=== PATIENT | female | born 1970 | race Caucasian/White ===

== ENCOUNTER → 2018-12-13 09:16 | Outpatient (CLI) | payer OTHER, SELFPAY ==
[2018-12-13 11:17] LABS: Alanine Aminotransferase 44 U/L (12-78); Albumin Level 3.5 gm/dL (3.4-5.0); Alkaline Phosphatase 168 U/L (46-116); Anion Gap 11.3 mEq/L (5-15); Aspartate Amino Transferase 28 U/L (15-37); Bilirubin,Total 0.5 mg/dL (0.2-1.0); Blood Urea Nitrogen 8 mg/dL (7-18); Calcium 8.9 mg/dL (8.5-10.1); Carbon Dioxide 30 mmol/L (21.0-32.0); Chloride 104 mmol/L (98-107); Chol/HDL Ratio 5.9 (1-3.5); Cholesterol 178 mg/dL (140-200); Creatinine,Serum 0.92 mg/dL (0.55-1.02); Estimated Glomerular Filt Rate 65 ml/min (>60); GFR (African American) 79 ML/MIN (>60); Globulin 3.6 gm/dl (1.3-3.2); Glucose 93 mg/dL (74-106); HDL Cholesterol 30 mg/dL (29-89); LDL Cholesterol 107 mg/dL (0-130); Potassium 4.3 mmoL/L (3.5-5.1); Sodium 141 mmol/L (136-145); Thyroid Stimulating Hormone 2.31 uIU/ml (0.358-3.740); Total Protein,Serum 7.1 gm/dL (6.4-8.2); Triglycerides 204 mg/dL (30-200); VLDL Cholesterol 41 mg/dL (0-40)
== END ==
PROVIDERS: Visit Provider Family Medicine
DX: E78.1 Pure hyperglyceridemia (principal)
CPT/HCPCS: 36415; 80053; 80061; 84443

== ENCOUNTER → 2020-01-12 11:06 | Outpatient (CLI) | payer BC, SELFPAY ==
[2020-01-13 14:11] LABS: Covid-19 Nasal PCR Sendout Lex NOT DETECTED
== END ==
PROVIDERS: PCP Family Medicine; Visit Provider Family Medicine
DX: Z03.818 Encounter for observation for suspected exposure to other biological agents ruled out (principal); Z11.59 Encounter for screening for other viral diseases
CPT/HCPCS: U0004

== ENCOUNTER 2020-08-01 12:43 | Emergency (ER) | payer BC, SELFPAY ==
--- NOTE | 2020-08-01 12:36 | ECG_ITS ---
APPROVED REPORT Exam: Resting ECG HR:88 bpm ECG Measurements Heart Rate 88 AXES LA 148 P 26 QRSd 72 QRS -25 QT 372 T 10 QTc 450 Conclusion Normal sinus rhythm Moderate voltage criteria for LVH, may be normal variant Possible Lateral infarct, age undetermined Abnormal ECG Electronically signed by : Nakul Navarro, 08/01/2020 17:41:13
[2020-08-01 12:43] VITALS: BP 146/84; PULSE 94; RESP 18; TEMP 36.8; O2SAT 97; BMI 37.8
--- NOTE | 2020-08-01 12:48 | XR_ITS ---
PROCEDURE: XR CHEST 2V CLINICAL HISTORY: SOA COMPARISON: CR CXR CHEST(2 VIEWS-NOT PORTABLE) from 08/28/[address] ANGIO CHEST from 08/01/2020 FINDINGS: There are low lung volumes. Unremarkable cardiovascular structures. The lungs are clear without infiltrates, suspicious nodules, or pleural effusions. No acute bony abnormalities. IMPRESSION: No acute findings. Dictated by: Efrain Skelton MD 08/01/2020 14:37 Efrain Skelton MD in [facility] 08/01/2020 14:37
[2020-08-01 12:52] VITALS: BP 135/80; PULSE 90; RESP 20; O2SAT 97
[2020-08-01 12:56] LABS: Basophils # 0.1 K/mm3 (0-0.2); Basophils % 1.2 % (0.1-2.0); Eosinophils # 0.1 K/mm3 (0.0-0.4); Eosinophils % 1.1 % (0.1-12.0); Hematocrit 44.4 % (37.0-47.0); Hemoglobin 14.4 g/dL (12.2-16.2); Lymphocytes % 23.5 % (10-50); Mean Corpuscular HGB Conc 32.5 g/dL (31.8-35.4); Mean Corpuscular Hemoglobin 28.3 pg (27.0-31.2); Mean Corpuscular Volume 87.1 fl (81-99); Mean Platelet Volume 8.4 fl (7.4-10.4); Monocytes # 0.4 K/mm3 (0.1-1.0); Monocytes % 4.4 % (1.7-9.3); Neutrophils % 69.8 % (37.0-80.0); Platelet Count 308 K/mm3 (142-424); Red Blood Count 5.09 M/mm3 (4.20-5.40); Red Cell Distribution Width 16.8 % (11.5-17.5); White Blood Count 8.6 K/mm3 (4.8-10.8)
--- NOTE | 2020-08-01 13:02 | HMH.EDGENADL ---
ED Disposition Clinical Impression: Dyspnea Qualifiers: Dyspnea type: dyspnea on exertion Qualified Code(s): R06.00 - Dyspnea, unspecified Disposition: Home, Self-Care Condition on Discharge: Good Additional Instructions: Prednisone as prescribed. Follow-up with your primary care provider, call for appointment. Additional instructions for SHORTNESS OF BREATH: See your physician as soon as possible for further evaluation. Return immediately if worsening shortness of breath or if vomiting, chest pain, fever, coughing of blood, or passing out. Prescriptions: predniSONE [Prednisone 20mg Tab] 20 mg PO BID #10 tab Transmission Status: Pending to [facility] #[id number] Referrals: PCP,No [Non-Staff] - - Critical Care Critical Care Time: No Attestation: On 08/01/20, the high probability of a clinically significant, sudden or life threatening deterioration of the following system(s) required my full and direct attention, intervention and personal management. The time I documented below is in addition to time spent performing reported procedures but includes the following listed in this critical care notation. Medical Decision Making - Joshua Inquiry Pt receiving controlled substance: No Vital Signs: 08/01/20 12:43 08/01/20 12:52 08/01/20 13:18 Temperature 98.2 F Temperature Source Oral Pulse Rate [Right] 94 H 90 93 H Respiratory Rate 18 20 18 Blood Pressure [Right Arm] 146/84 H 135/80 128/80 Blood Pressure Mean [Right Arm] 104 98 96 Blood Pressure Source [Right Arm] Automatic Cuff Blood Pressure Position [Right Arm] Sitting 02 Sat by Pulse Oximetry 97 97 95 Oxygen Delivery Method Room Air 08/01/20 13:30 08/01/20 14:00 Temperature Temperature Source Pulse Rate [Right] 91 H 89 Respiratory Rate 16 18 Blood Pressure [Right Arm] 125/86 136/86 Blood Pressure Mean [Right Arm] 99 102 Blood Pressure Source [Right Arm] Blood Pressure Position [Right Arm] 02 Sat by Pulse Oximetry 96 96 Oxygen Delivery Method - Lab Data Lab Results 08/01/20 12:44: WBC 8.6, RBC 5.09, Hgb 14.4, Hct 44.4, MCV 87.1, MCH 28.3, MCHC 32.5, RDW 16.8, Plt Count 308, MPV 8.4, Neut % (Auto) 69.8, Lymph % (Auto) 23.5, Cavalier % (Auto) 4.4, Eos % (Auto) 1.1, Baso % (Auto) 1.2, Neut # (Auto) 6.0, Lymph # (Auto) 2.0, Cavalier # (Auto) 0.4, Eos # (Auto) 0.1, Baso # (Auto) 0.1 08/01/20 12:44: Sodium 137, Potassium 4.7, Chloride 104, Carbon Dioxide 26, Anion Gap 11.7, BUN 10, Creatinine 0.90, Estimated Creat Clear 107, Estimated GFR 66, Est GFR ( Amer) 80, Glucose 132 H, Calcium 9.5, Total Bilirubin 0.6, AST 61 H, ALT 43, Alkaline Phosphatase 169 H, Troponin I < 0.01, Total Protein 8.1, Albumin 4.6, Globulin 3.5 H, Albumin/Globulin Ratio 1.3 08/01/20 12:44: SARS-CoV-2 IgG Ab (Rapid) Negative, SARS-CoV-2 IgM Ab (Rapid) Negative 08/01/20 12:44: D-Dimer 0.69 H 08/01/20 15:01: Troponin I < 0.01 Result diagrams: 08/01/20 12:44 08/01/20 12:44 Orders (Tests/Meds): ED MEDICATIONS Discontinued Medications Generic Name Dose Route Start Last Admin Trade Name Freq PRN Reason Stop Dose Admin Iopamidol 70 ml 08/01/20 14:18 08/01/20 14:19 Iopamidol-370 (76%);100ml Bottle IV 08/01/20 14:19 70 ml ONCE ONE Administration Sodium Chloride 10 ml 08/01/20 14:18 08/01/20 14:19 Sodium Chloride 0.9% 10ml Syr (Rad Only) IV 08/01/20 14:19 10 ml ONCE ONE Administration Sodium Chloride 50 ml 08/01/20 14:18 08/01/20 14:19 0.9 % Sodium Chloride 50 Ml Vial IV 08/01/20 14:19 50 ml ONCE ONE Administration ORDERS Category Date Time Status Troponin I Q3H Lab 08/01/20 19:00 Ordered - Radiology Data #1 Image(s): Chest Image Reviewed: Yes I have reviewed radiologist's interpretation PROCEDURE: XR CHEST 2V CLINICAL HISTORY: SOA COMPARISON: CR CXR CHEST(2 VIEWS-NOT PORTABLE) from 08/28/[address] ANGIO CHEST from 08/01/2020 FINDINGS: There are low lung vol
[2020-08-01 13:07] LABS: Chloride 104 mmol/L (98-107)
[2020-08-01 13:08] LABS: Potassium 4.7 mmoL/L (3.5-5.1); Sodium 137 mmol/L (136-145)
[2020-08-01 13:10] LABS: Alanine Aminotransferase 43 U/L (12-78); Aspartate Amino Transferase 61 U/L (14-36); Blood Urea Nitrogen 10 mg/dl (7-17); Creatinine Clearance Estimated 107 mL/min (50-200); Estimated Glomerular Filt Rate 66 ml/min (>60); GFR (African American) 80 ML/MIN (>60)
[2020-08-01 13:11] LABS: Albumin Level 4.6 g/dl (3.5-5.0); Albumin/Globulin Ratio 1.3 (1.1-1.8); Alkaline Phosphatase 169 U/L (38-126); Anion Gap 11.7 mEq/L (5-15); Bilirubin,Total 0.6 mg/dl (0.2-1.3); Calcium 9.5 mg/dl (8.4-10.2); Carbon Dioxide 26 mmol/L (22.0-30.0); Globulin 3.5 g/dL (1.3-3.2); Glucose 132 mg/dl (74-100); Total Protein,Serum 8.1 g/dl (6.3-8.2)
[2020-08-01 13:16] LABS: D-Dimer 0.69 ug/mL (0.0-0.5)
[2020-08-01 13:18] VITALS: BP 128/80; PULSE 93; RESP 18; O2SAT 95
[2020-08-01 13:26] LABS: Troponin I < 0.01 ng/ml (0.00-0.034)
[2020-08-01 13:30] VITALS: BP 125/86; PULSE 91; RESP 16; O2SAT 96
[2020-08-01 13:36] LABS: Coronavirus 19 IgG Antibody Negative (Negative); Coronavirus 19 IgM Antibody Negative (Negative)
--- NOTE | 2020-08-01 13:51 | CT_ITS ---
PROCEDURE: CT ANGIO CHEST CLINCIAL INDICATION: soa, elev d-dimer Shortness of air, dyspnea with exertion COMPARISON: No exams were available for comparison TECHNIQUE: IV Contrast: 70ML Isovue 370 Axial images obtained with sagittal and coronal reformats. All CT scans at the facility use one or more dose reduction, viz: automated exposure control, ma/kV adjustment per patient size (including targeted exams where dose is matched to indication, i.e. head), or iterative reconstruction technique. FINDINGS: HEART AND MEDIASTINAL STRUCTURES: No evidence of pulmonary embolus, aortic aneurysm, or aortic dissection. There is a small lymph node in the right anterior pre cardial region measuring 1.5 cm. LUNGS AND PLEURAL SPACES: There is calcified granuloma in the right lower lobe posteriorly. A 4 mm noncalcified nodules present in the right lower lobe superiorly. Parenchymal opacity is present in the right upper lobe medially and may be due to an area of scarring. BONY STRUCTURES: No acute bony abnormalities apparent. UPPER ABDOMEN: Diffuse fatty liver. Borderline splenomegaly degenerative changes thoracic spine ADDITIONAL FINDINGS: No other significant abnormalities. IMPRESSION: No acute finding. No evidence of pulmonary embolus. Nonacute findings as described above. Dictated by: Efrain Skelton MD 08/01/2020 14:36 Efrain Skelton MD in [facility] 08/01/2020 14:36
[2020-08-01 14:00] VITALS: BP 136/86; PULSE 89; RESP 18; O2SAT 96
[2020-08-01 15:31] LABS: Troponin I < 0.01 ng/ml (0.00-0.034)
[2020-08-01 15:56] VITALS: BP 162/92; PULSE 95; RESP 16; TEMP 36.6; O2SAT 97
== END 2020-08-01 15:57 | disposition home or self-care (01) ==
PROVIDERS: Emergency Provider Emergency Medicine; PCP Family Medicine
DX: R06.02 Shortness of breath (principal); F32.9 Major depressive disorder, single episode, unspecified; Z82.3 Family history of stroke; Z83.3 Family history of diabetes mellitus; Z82.49 Family history of ischemic heart disease and other diseases of the circulatory system
CPT/HCPCS: 71046; 71275; 80053; 84484; 85025; 85378; 86328; 93005; 99284; Q9967

== ENCOUNTER → 2021-03-19 10:50 | Outpatient (POV) | payer BC, SELFPAY ==
[2021-03-19 13:26] LABS: Erythrocyte Sedimentation Rate 26 mm/hr (0-30)
[2021-03-19 16:23] LABS: Uric Acid 4.8 mg/dl (2.5-6.2)
[2021-03-20 08:28] LABS: RA Latex Turbid. <10.0 IU/mL (0.0-13.9)
[2021-03-20 14:14] LABS: Sjogren's Anti-SS-A <0.2 AI (0.0-0.9); Sjogren's Anti-SS-B <0.2 AI (0.0-0.9)
[2021-03-20 17:16] LABS: Antinuclear Antibodies, IFA Positive (.)
[2021-03-23 16:37] LABS: Antinuclear Antibodies (ANA) NEGATIVE
== END ==
PROVIDERS: Visit Provider Otolaryngology
DX: M35.00 Sjogren syndrome, unspecified (principal)
CPT/HCPCS: 36415; 84550; 85651; 86038; 86235; 86431

== ENCOUNTER 2022-04-27 14:55 | Emergency (ER) | payer OTHER, SELFPAY ==
[2022-04-27] VITALS (7 sets, daily range): BP systolic 140–157; BP diastolic 71–98; PULSE 98–123; RESP 17–24; TEMP 36.7–36.9; O2SAT 92–99; BMI 32.0
--- NOTE | 2022-04-27 16:04 | EXP.UTC ---
Discharge Plan Prescriptions Prescriptions: No Action duloxetine [Cymbalta] 30 mg capsule,delayed release(DR/EC) 60 mg PO QDAY Referrals Follow up/Referrals: Rigo Oconnell MD [Primary Care Provider] - See instructions Clinical Impressions Clinical Impression: Abdominal pain [facility] [place] General Stated complaint: Vomitting, possible dehydration, BA Mode of Arrival: Ambulatory Source of Information: Patient Limitations: No Limitations Time Seen by Provider: 04/27/22 16:05 Description of Symptoms (Recalled from Triage Doc. by RN): PATIENT C/O EPIGASTRIC PAIN AND VOMITING THAT STARTED AROUND 1100 TODAY. HEENT Symptoms (Recalled from RN notes): No Resp Symptoms (Recalled from RN notes): No Skin Symptoms (Recalled from RN notes): No MS Symptoms (Recalled from RN notes): No Functional Status (Recalled from RN notes): WNL History of Present Illness Provider Complaint: 51 yr old female presents for epigastric pain, nausea and vomiting Related Data Home Medications Medication Instructions Recorded Confirmed duloxetine 30 mg capsule,delayed 60 mg PO QDAY Depression 07/23/17 04/27/22 release (Cymbalta) Allergies Allergy/AdvReac Type Severity Reaction Status Date / Time No Known Allergies Allergy Verified 08/01/20 12:54 Worker's Comp Is this a Worker's Comp case?: No [facility] 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 , 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) Smoking Status: Never smoker alcohol intake: current current occupational status: other Travel in the last 8 weeks: None ROS Obtained: Yes All systems reviewed & no additional complaints except as documented Constitutional Constitutional: Reports system reviewed and no additional complaints, except as documented Eyes Eyes: Reports system reviewed and no additional complaints, except as documented ENT Ears, Nose, Mouth, and Throat: Reports system reviewed and no additional complaints, except as documented Cardiovascular Cardiovascular: Reports system reviewed and no additional complaints, except as documented Respiratory Respiratory: Reports system reviewed and no additional complaints, except as documented Gastrointestinal Gastrointestingal: Reports system reviewed and no additional complaints, except as documented, as per HPI, abdominal pain, bloating, nausea and vomiting Musculoskeletal Musculoskeletal: Reports system reviewed and no additional complaints, except as documented Integumentary/Breasts Skin/Breast: Reports system reviewed and no additional complaints, except as documented and Reports as per HPI Neurologic Neurologic: Reports system reviewed and no additional complaints, except as documented Endocrine Endocrine: Reports system reviewed and no additional complaints, except as documented Hematologic/Lymphatic Henatologic/Lymphatic: Reports system reviewed and no additional complaints, except as documented Allergic/Immunologic Allergic/Immunologic: Reports system reviewed and no additional complaints, except as documented Physical Exam General General appearance: alert and in no apparent distress Head Head exam: atraumatic and normocephalic Eye Eye exam: Present normal appearance and PERRL ENT ENT exam: Present normal exam and normal oropharynx Neck Neck exam: Present normal inspection and full ROM Chest Chest inspection: Present normal inspection Respiratory Respiratory exam: Present normal lung sounds bilaterally Cardiovascular Cardiovascular exam: Present regular rate Abdominal Exam Abdominal exam: Present soft and tenderness Neurological Exam Neurological exam: Present alert Skin Skin exam: Present warm Lymphatic Lymphatic Findings: no adenopathy Medical Decision Making Medical Records Medical records reviewed: Yes I reviewed the patient's medical records. Joshua Inquiry Pt receiving controlled substance: No Vital Signs: 04/27/22 15:40 Temperature 98.4 F Temperature
--- NOTE | 2022-04-27 16:27 | HMH.EDGENADL ---
Discharge Plan Disposition Patient Disposition: Home, Self-Care Condition: Fair Prescriptions Prescriptions: New ondansetron 4 mg tablet,disintegrating 4 mg PO Q8H PRN (Reason: nausea and vomiting) Qty: 10 0RF No Action duloxetine [Cymbalta] 30 mg capsule,delayed release(DR/EC) 60 mg PO QDAY Referrals Follow up/Referrals: Rigo Oconnell MD [Primary Care Provider] - See instructions Activity Restrictions/Add. Instructions Additional Instructions/Restrictions: Phenergan take-home pack, then Zofran as needed for nausea and vomiting. Drink plenty of fluids. Drink at least a quart of Gatorade tonight. Tylenol as needed for pain or fever. Follow-up with primary care provider for further evaluation and care. Follow-up with primary care provider for HIDA scan to evaluate dilated gallbladder. Additional instructions for ABDOMINAL PAIN: See your physician as soon as possible for further evaluation. Return immediately if worsening abdominal pain, vomiting, shortness of breath, fever, vomiting of blood or abdominal distention. Additional instructions for VOMITING/DIARRHEA: See your physician as soon as possible for further evaluation. Drink plenty of fluids. Return immediately if severe abdominal pain, uncontrollable vomiting, shortness of breath, fever, bloody diarrhea, vomiting of blood or abdominal distention. Clinical Impressions Clinical Impression: Abdominal pain, Acute dehydration, Enteritis, Dilated gallbladder, Vomiting Instructions Patient Instructions: DI for Acute Abdominal Pain Discharge ED Provider: Kevin Otero General Adult HPI General Chief complaint: Abdominal Pain Stated complaint: Vomitting, possible dehydration, BA Time Seen by Provider: 04/27/22 16:30 Mode of Arrival: Ambulatory Source of Information: Patient Limitations: No Limitations Description of Symptoms (Recalled from ER Triage Doc. by RN): PATIENT C/O EPIGASTRIC PAIN AND VOMITING THAT STARTED AROUND 1100 TODAY. History of Present Illness HPI narrative: Patient states that she did not keep it down to about 4 AM. She was awakened by epigastric pain and made her feel like she needed to have a bowel movement at around 1030 or 11 AM. She had a bowel movement that was normal and it did not relieve the pain. She has had 2 or 3 episodes of vomiting and is still nauseated. No fever. No urinary symptoms. No chest pain or shortness of breath. Her mouth feels very dry and she is thirsty. She has had no prior abdominal surgeries. She is postmenopausal. 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) Smoking Status: Never smoker alcohol intake: current current occupational status: other Travel in the last 8 weeks: None ROS Obtained: Yes Systems reviewed as appropriate & no additional complaints except as documented Constitutional Constitutional: Denies fever(s), Denies headache(s) and Denies weakness ENT Ears, Nose, Mouth, and Throat: Reports dry mouth, Denies headache(s), Denies nasal discharge and Denies sore throat Cardiovascular Cardiovascular: Denies chest pain Respiratory Respiratory: Denies shortness of breath and Denies cough Gastrointestinal Gastrointestingal: Reports abdominal pain, nausea and vomiting; Denies constipation or diarrhea Genitourinary Female Genitourinary: Denies difficulty voiding, Denies dysuria and Denies flank pain Musculoskeletal Musculoskeletal: Denies numbness Neurologic Neurologic: Denie
--- NOTE | 2022-04-27 16:36 | ECG_ITS ---
APPROVED REPORT Exam: Resting ECG HR:111 bpm ECG Measurements Heart Rate 111 AXES IL 164 P 22 QRSd 73 QRS -23 QT 335 T 48 QTc 400 Conclusion SINUS TACHYCARDIA LOW QRS VOLTAGE IN PRECORDIAL LEADS [QRS DEFLECTION < 1.0 mV IN CHEST LEADS] MODERATE VOLTAGE CRITERIA FOR LVH, CONSIDER NORMAL VARIANT [MEETS CRITERIA IN ONE OF: R(aVL), S(V1), R(V5), R(V5/V6)+S(V1)] POSSIBLE ANTERIOR MYOCARDIAL INFARCTION , PROBABLY OLD [30 ms Q WAVE IN V3/V4, OR R < 0.2 mV IN V4] ABNORMAL RHYTHM ECG UNCONFIRMED REPORT Electronically signed by : Nakul Navarro MD 04/29/2022 21:14:08
--- NOTE | 2022-04-27 16:38 | CT_ITS ---
PROCEDURE INFORMATION: Exam: CT Abdomen And Pelvis Without Contrast Exam date and time: 04/27/2022 4:41 PM Age: 51 years old Clinical indication: Abdominal pain; Epigastric; TECHNIQUE: Imaging protocol: Computed tomography of the abdomen and pelvis without contrast. Radiation optimization: All CT scans at this facility use at least one of these dose optimization techniques: automated exposure control; mA and/or kV adjustment per patient size (includes targeted exams where dose is matched to clinical indication); or iterative reconstruction. COMPARISON: CT ANGIO CHEST 08/01/2020 2:12 PM FINDINGS: Lungs: Calcified right lower lobe pulmonary granuloma. No acute pulmonary findings, as visualized. No consolidation. Liver: Upper normal liver size. Fatty liver, with mild periportal sparing. No discrete mass seen on this nonenhanced exam. Gallbladder and bile ducts: Mildly distended gallbladder. No calcified stones. No pericholecystic edema fluid. Biliary tree is within normal limits. Pancreas: The pancreas is normal. Spleen: Slight splenomegaly 13.7 cm series 3, image 23. Adrenal glands: The adrenal glands are normal. Kidneys and ureters: The kidneys are normal. The ureters are normal. Stomach and bowel: The stomach is distended with fluid, no acute findings. Fluid distention of large and small bowel loops, but no dilated loops or mucosal thickening. The transverse colon is empty and contracted which likely accounts for thickened appearance, there is no pericolic edema. Appendix: No findings of appendicitis. Intraperitoneal space: Mildly increased density of the central mesentery. There is no significant free intraperitoneal fluid. There is no free intraperitoneal air. Vasculature: No aortic aneurysm, as visualized. Borderline dilated ascending thoracic aorta up to 4 cm series 3, image 1. Scattered calcified atherosclerotic plaques. No portal venous gas. Lymph nodes: No significantly enlarged lymph nodes by short axis criteria. Multiple small mesenteric nodes noted. Urinary bladder: The bladder is normal. Reproductive: Unremarkable, as visualized. Bones/joints: Chronic bilateral L5 spondylolysis with grade 1-2 anterolisthesis at L5-S1. Severe degenerative disc disease and spondylosis at this level. There is also moderate disc narrowing and spondylosis in the visualized lower thoracic spine. No acute fracture. Soft tissues: There is a tiny fatty umbilical hernia; no herniated bowel loops. IMPRESSION: 1. Distended gallbladder, but no calcified stones or biliary dilatation. 2. Fatty liver. Mild splenomegaly. 3. Mildly increased density of the central mesentery. Findings are nonspecific and may be chronic. Leading considerations include mesenteric panniculitis, edema related to systemic causes, and reactive edema secondary to subtle infectious or inflammatory bowel pathology. Lack of significant adenopathy would make lymphoma less likely. 4. The stomach, large and small bowel are distended with fluid; there is no evidence of intestinal perforation or obstruction. 5. Bilateral L5 spondylolysis with grade 1-2 anterolisthesis at L5-S1, and severe degenerative disc disease.
[2022-04-27 16:51] LABS: Basophils % 0.4 % (0.1-2.0); Chloride 102 mmol/L (98-107); Eosinophils # 0.1 K/mm3 (0.0-0.4); Eosinophils % 0.7 % (0.1-12.0); Hematocrit 43.2 % (37.0-47.0); Hemoglobin 14.4 g/dL (12.2-16.2); Lymphocytes # 0.2 K/mm3 (0.7-4.5); Lymphocytes % 2.3 % (10-50); Mean Corpuscular HGB Conc 33.2 g/dL (31.8-35.4); Mean Corpuscular Volume 87.1 fl (81-99); Mean Platelet Volume 8.1 fl (7.4-10.4); Monocytes # 0.2 K/mm3 (0.1-1.0); Monocytes % 2.1 % (1.7-9.3); Neutrophils # 8.6 K/mm3 (1.8-7.8); Neutrophils % 94.4 % (37.0-80.0); Platelet Count 227 K/mm3 (142-424); Potassium 3.7 mmoL/L (3.5-5.1); Red Blood Count 4.96 M/mm3 (4.20-5.40); Red Cell Distribution Width 14.9 % (11.5-17.5); Sodium 142 mmol/L (136-145); White Blood Count 9.1 K/mm3 (4.8-10.8)
[2022-04-27 16:53] LABS: Blood Urea Nitrogen 16 mg/dl (7-17); Creatinine Clearance Estimated 92 mL/min (50-200); Estimated Glomerular Filt Rate 66 ml/min (>60); GFR (African American) 80 ML/MIN (>60)
[2022-04-27 16:54] LABS: Alanine Aminotransferase 30 U/L (12-78); Albumin Level 4.3 g/dl (3.5-5.0); Albumin/Globulin Ratio 1.3 (1.1-1.8); Alkaline Phosphatase 190 U/L (38-126); Anion Gap 15.7 mEq/L (5-15); Aspartate Amino Transferase 30 U/L (14-36); Bilirubin,Total 0.9 mg/dl (0.2-1.3); Calcium 8.7 mg/dl (8.4-10.2); Carbon Dioxide 28 mmol/L (22.0-30.0); Globulin 3.3 g/dL (1.3-3.2); Glucose 169 mg/dl (74-100); Lipase 71 U/L (23-300); Total Protein,Serum 7.6 g/dl (6.3-8.2)
[2022-04-27 16:59] LABS: MANUAL DIFFERENTIAL MANUAL DIFFERENTIAL (MANUAL DIFF)
--- NOTE | 2022-04-27 17:00 | PC.NURSE ---
PT AMBULTAED TO [facility]
[2022-04-27 17:11] LABS: Microscopic, Urine URINE MICROSCOPIC (MICROSCOPIC)
[2022-04-27 17:22] LABS: Troponin I < 0.01 ng/ml (0.00-0.034)
[2022-04-27 17:27] LABS: Appearance,Urine SL CLOUDY (Clear); Bilirubin,Urine Negative (Negative); Blood, Urine Negative (Negative); Color,Urine YELLOW (Yellow); Glucose,Urine (UA) Negative (Negative); Ketones,Urine 1+ (Negative); Leukocyte Esterase,Urine Negative (Negative); Nitrate,Urine Negative (Negative); Protein,Urine Negative (Negative); Specific Gravity, Urine 1.025 (1.005-1.030); Urobilinogen,Urine 0.2 EU/dl (0.2)
[2022-04-27 17:38] LABS: Squamous Epithelial Cell,Urine Occasional #/hpf (0-5); WBC,Urine Occasional #/hpf (0-3)
--- NOTE | 2022-04-27 17:44 | US_ITS ---
PROCEDURE INFORMATION: Exam: US Abdomen, Limited; Right Upper Quadrant Exam date and time: 04/27/2022 6:10 PM Age: 51 years old Clinical indication: Other: Ruq pain; Additional info: Epigast pain, distended gb on CT TECHNIQUE: Imaging protocol: Real time ultrasound of the abdomen with image documentation. Limited exam focused on the right upper quadrant. COMPARISON: CT ABDOMEN PELVIS WO CON 04/27/2022 4:41 PM FINDINGS: Liver: Normal size. Increased echogenicity of liver parenchyma suggesting fatty change. No discrete mass. Gallbladder: Distended gallbladder. No gallstones. There is no gallbladder wall thickening. The technologist noted a positive sonographic Alex sign when scanning over the gallbladder. Biliary ducts: Normal as visualized, distal common duct is obscured by bowel gas. Visualized duct measured up to 5 mm diameter, within normal limits. No stones detected. No intrahepatic biliary dilatation. Pancreas: Visualized pancreas is unremarkable. Pancreas is partially obscured by bowel gas. No ductal dilatation, cyst or mass as visualized. Right kidney: Normal. No mass. No hydronephrosis. 11.4 x 4.4 x 6.6 cm diameter. Intraperitoneal space: No free fluid is seen in Jules's pouch. IMPRESSION: 1. Distended gallbladder and the patient reported pain when the technologist scanned over the gallbladder; however, no gallstones were detected. No biliary dilatation, or sonographic findings of acute cholecystitis. 2. Fatty liver. 3. Otherwise unremarkable exam, slightly limited by bowel gas.
[2022-04-27 17:48] LABS: Lymphocytes % 2 % (10-50); Monocytes % 4 % (2-9); Neutrophils % 94 % (42-76); Platelet Estimate Normal; RBC Morphology Normal; Total Cells Counted 100
--- NOTE | 2022-04-27 17:55 | PC.NURSE ---
ER has spoken with radiology staff, states a staff member for ultrasound will be here at 6:00pm today. Order placed for gallbladder ultrasound per ER
--- NOTE | 2022-04-27 18:31 | PC.NURSE ---
PT IS IN [facility]
--- NOTE | 2022-04-27 18:38 | PC.NURSE ---
PT BACK FROM [facility]
[2022-04-27 18:59] LABS: Coronavirus 19, PCR Not Detected (NotDetected); Influenza A, PCR Not Detected (NotDetected); Influenza B, PCR Not Detected (NotDetected)
--- NOTE | 2022-04-27 19:31 | PC.NURSE ---
Pt requests more medication for nausea. RN notified.
== END 2022-04-27 20:30 | disposition home or self-care (01) ==
LOC: UTC 14:58 → ER 16:13
PROVIDERS: Nurse Practitioner Family; Emergency Provider Emergency Medicine; PCP Family Medicine
DX: K52.9 Noninfective gastroenteritis and colitis, unspecified (principal); K82.8 Other specified diseases of gallbladder; E86.0 Dehydration; Z79.899 Other long term (current) drug therapy; F32.A Depression, unspecified
CPT/HCPCS: 74176; 76705; 80053; 81001; 83690; 84484; 85007; 85025; 87804; 93005; 96365; 96375; 96376; 99284; C9803; J2405; U0003; U0005

== ENCOUNTER → 2022-05-15 09:50 | Outpatient (CLI) | payer OTHER, SELFPAY ==
--- NOTE | 2022-05-15 09:59 | NM_ITS ---
FINAL REPORT CLINICAL HISTORY: ABD PAIN,GALLBLADDER DISEASE 10:05am 8.75 MCI TC CHOLETEC 1.6 MCG CCK NO PAIN WITH CCK FINDINGS: HEPATOBILIARY SCAN WITH CCK INJECTION Following intravenous administration of approximately 8.75 of technetium Choletec, multiple scintigraphic images were obtained. The hepatic parenchymal phase shows homogeneous distribution of the tracer throughout the liver. Prompt appearance of tracer is noted in the intrahepatic and extrahepatic biliary systems. The gallbladder visualizes normal. Biliary to bowel transit is within normal limits. Following intravenous 1.6 mcg CCK injection, gallbladder ejection fraction is estimated to be 65 %. IMPRESSION: Normal gallbladder ejection fraction of 65 %. Reviewed, Interpreted and Dictated by John Amador MD Transcribed by Brayden Vega Authenticated and [facility]
== END ==
PROVIDERS: PCP Family Medicine; Visit Provider Family Medicine
DX: R10.13 Epigastric pain (principal); K82.8 Other specified diseases of gallbladder
CPT/HCPCS: 78227; A9537; J2805

== ENCOUNTER 2023-07-07 08:45 | Outpatient (CLI) | payer OTHER, SELFPAY ==
--- NOTE | 2023-07-07 08:51 | MM_ITS ---
PROCEDURE INFORMATION: Exam: MG Bilateral Screening 3D Mammography Exam date and time: 07/07/2023 9:00 AM Age: 52 years old Clinical indication: Screening examination . Family history of breast carcinoma. TECHNIQUE: Imaging protocol: Bilateral Screening tomosynthesis and 2D mammography including computer-aided detection (CAD) when performed. COMPARISON: 1. MG DMSB DIG MAMM-SCREEN MILES 05/03/2015 5:02 PM 2. MG DMSB DIG MAMM-SCREEN MILES 04/25/2014 11:01 AM 3. MG DMSB DIG MAMM-SCREEN MILES 04/08/2013 8:25 AM FINDINGS: MAMMOGRAPHY: Breast composition: There are scattered areas of fibroglandular density. Mass: No suspicious masses. Architectural distortion: No suspicious distortion. Calcifications: No suspicious calcifications. Asymmetric density: None. Skin thickening: None. Axillary adenopathy: None. IMPRESSION: No mammographic evidence of malignancy. Annual screening is recommended unless otherwise clinically indicated. ASSESSMENT: BI-RADS Category 1: Negative
== END 2023-07-07 23:59 ==
LOC: RAD 08:45
PROVIDERS: PCP Family Medicine; Visit Provider Obstetrics & Gynecology Gynecology
DX: Z12.31 Encounter for screening mammogram for malignant neoplasm of breast (principal)
CPT/HCPCS: 77063; 77067

== ENCOUNTER 2025-05-18 14:17 | Outpatient (CLI) | payer OTHER, SELFPAY ==
--- OUTSIDE RECORDS SUMMARY | 2024-04-04 05:15 | XMS_ITS ---
Author Organization [facility] Address [address] [facility] [address] [facility] [address] [place] [id number] Care Team Providers Care Coil Connector Repairer Name Role Phone Candida Reyes Primary Care Provider [phone] ColumbiaJean ClaudeRigo Unavailable [phone] Allergies No Known Allergies Results Component Value Reference Range Notes P-Comprehensive Metabolic [place] (CMP) Reviewed date:04/05/2024 08:52:02 AM Interpretation:gluc 104, alk phos 139 Performing Lab: Notes/Report: Test performed by [facility] [address] [place] [address] , [address], [place] [address] Tejas Garcia MD, Nurse Clinical CLIA: [id number] Sodium 142 135-145 mmol/L Potassium 4.7 3.5-5.3 mmol/L Chloride 105 97-108 mmol/L CO2 27 22-32 mmol/L Glucose 104 65-99 mg/dL BUN 11 6-20 mg/dL Creatinine 0.74 0.50-1.00 mg/dL Calcium 9.2 8.6-10.4 mg/dL eGFR by Creatinine 96 >59 mL/min/1.73m2 Protein 6.8 6.0-8.3 g/dL Albumin 4.4 3.5-5.3 g/dL Alkaline Phosphatase 139 35-121 IU/L ALT (SGPT) 19 <5-47 IU/L AST (SGOT) 18 <5-40 IU/L Bilirubin, Total 0.3 <0.2-1.2 mg/dL A/G Ratio 1.8 1.1-2.5 P-Lipid Panel Reviewed date:04/05/2024 08:52:02 AM Interpretation:non-hdl 151, ldl 132 Performing Lab: Notes/Report: Test performed by [facility] [address] [facility] , [address], [place] [address] Tejas Garcia MD, Nurse Clinical CLIA: [id number] Cholesterol 198 <200 mg/dL Triglycerides 93 <150 mg/dL HDL Cholesterol 47 >39 mg/dL Cholesterol / HDL Ratio 4.21 0.00-4.44 Ratio Non-HDL Cholesterol 151 <130 mg/dL LDL Cholesterol (Calculation) 132 <130 mg/dL LDL Cholesterol Levels* Less than 100 mg/dL Optimal 100 to 129 mg/dL Near Optimal/ Above Optimal 130 to 159 mg/dL Borderline High 160 to 189 mg/dL High 190 mg/dL and above Very High * Categories as recommended by the 2004 ATPIII guidelines LDL/HDL Ratio 2.8 <3.3 Ratio LDL Cholesterol Patient History Test Date: 05/16/2022 LDL Results: 104 Units: mg/dL % Change: - Test Date: 04/04/2024 LDL Results: 132 Units: mg/dL % Change: +26% P-TSH reflex to FT4 Reviewed date:04/05/2024 08:52:02 AM Interpretation:Normal Performing Lab: Notes/Report: Test performed by [facility] , [address], [place] [address] Tejas Garcia MD, Nurse Clinical CLIA: [id number] TSH reflex to FT4 1.78 0.43-5.25 mU/L REASON FOR VISIT Yearly Physical Medications Medication SIG (Take, Route, Frequency, Duration) Notes Start Date End Date Status DULoxetine HCl 60 MG 2 cap(s) orally onc e a day; Duration: 90 days Active CareTouch CPAP & BIPAP Hose - as directed 11/19/2015 Active Albuterol Sulfate HFA 108 (90 Base) MCG/ACT 2 puff(s) inhaled every 6 hours Active Progesterone 200 MG 1 capsule at bedtime Orally Once a day; Duration: 30 day(s) Active Maddie 0.1 MG/24HR 1 patch to skin Transdermal Two times a Week; Duration: 30 day(s) Active Vital Signs Blood pressure systolic 128 mm Hg 04/04/20 24 Blood pressure diastolic 80 mm Hg 024 Heart Rate 79 /min 04/04/2024 Height 62 in 04/04/2024 Weight 162.8 lbs 04/04/2024 BMI 29.77 kg/m2 04/04/2024 Encounters Encounter Location Date Provider Diagnosis [facility] [address] [facility] [address] [place] [id number] 04/04/2024 Rigo Oconnell Well adult exam Z00. 00 Assessments Encounter Date Diagnosis (ICD Code) Assessment Notes Treatment Notes Treatment Clinical Notes Section Notes 04/04/2024 Well adult exam (ICD-10 - Z00.00) Plan Of Treatment Next Appt Details Follow Up: prn, Reason: Progress Notes * BERNARD ROSENB:1970 ( 54 yo F)Acc No.[id number]:04/04/2024 Physical Patient: SAE BLACKMONA Provider: Mariah Oconnell M.D. :1970 A ge:53 Y S ex:Female Date:04/04/2024 Address:[address] [place] [address] DEAN Reinoso [id number] Pcp:Candida Reyes Subjective: * Chief Complaints: * 1 . Yearly Physical. * HPI: H PI: Patient is here today for a nnual physical for her insurance. Pt is fasting today. Pt sts that she has no new concerns or complaints. * ROS: D ERMATOLOGY: no R cony. n o H patrick. G ASTROENTEROLOGY: no N ausea. n o V omiting. U ROLOGY: no D ifficulty urinating. n o B lood in urine. * Medical History: A llergic Rhinitis, Asthma, [employer] - Dr. Whitaker, Depression, Sleep Apnea. * Surgical History: c olonoscopy 2022, Right Foot Surgery 04/2023. * Hospitalization/Major Diagno stic Procedure: R T Heel [place]- [facility], SOA- [facility] ER 07/2020. * Family History: F ather: , cancer. M other: . P aternal Grand Father: . P aternal Grand Mother: . M aternal Grand Father: . M aternal Grand Mother: . 1 son(s) , 1 daughter(s) - healthy. . * 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: C URRENT TOBACCO USE S moking Status: Patient does NOT smoke, Second hand smoke exposure: Yes. C affeine: yes, frequency:coffe coke tea. Exercise: no. Home smoke detector use: yes. Marital Status: . Occupation: no. Past smoking status: no. Recreational drug use: no. Alcohol: no. Travel ouside [place]: yes. * Medications: T aking Progesterone 200 MG Capsule 1 capsule at bedtime Orally Once a day , Taking Maddie 0.1 MG/24HR Patch Twice Weekly 1 patch to skin Transdermal Two times a Week , Taking CareTouch CPAP & BIPAP Hose - Miscellaneous as directed , Taking Albuterol Sulfate HFA 108 (90 Base) MCG/ACT Aerosol Solution 2 puff(s) inhaled every 6 hours , Taking DULoxetine HCl 60 MG Capsule Delayed Release Particles 2 cap(s) orally once a day , Medication List reviewed and reconciled with the patient * Allergies: N .K.D.A. Objective: * Vitals: W t:162.8, Temp:98.5, BP:128/80, HR:79, Nurse:ANGELSE, Ht: 62, BMI:29.77. * Examination: G eneral Examination: General Appearance: N AD. H EENT: u nremarkable.?Chest: n ormal shape and expansion. H eart: R SR. L ungs: c lear to auscultation. S kin: n ormal, no rash. P eripheral pulses: n ormal (2+) bilaterally. E xtremities: n o leg edema. Assessment: * Assessment: 1. W [facility] adult exam - Z00.00 (Primary) Plan: * Treatment: Value Reference Range A /G Ratio 1.8 1.1-2.5 - * A lbumin 4.4 3.5-5.3 - g/dL * A lkaline Phosphatase 139 H 35-121 - IU/L * A LT (SGPT) 19 <5-47 - IU/L * A ST (SGOT) 18 <5-40 - IU/L * B ilirubin, Total 0.3 <0.2-1.2 - mg/dL * B UN 11 6-20 - mg/dL * C alcium 9.2 8.6-10.4 - mg/dL * C hloride 105 97-108 - mmol/L * C O2 27 22-32 - mmol/L * C reatinine 0.74 0.50-1.00 - mg/dL * G lucose 104 H 65-99 - mg/dL * P otassium 4.7 3.5-5.3 - mmol/L * S odium 142 135-145 - mmol/L * P rotein 6.8 6.0-8.3 - g/dL * e GFR by Creatinine 96 >59 - mL/min/1.73m2 * Radha Mallory 04/05/2024 8:51: 56 AM >See phone encounter ?LAB: P-Lipid Panel (Collection Date & Time - 04/04/2024 10:31 AM)?non-hdl 151, ldl 132* Value Reference Range C holesterol / HDL Ratio 4.21 0.00-4.44 - Ratio * C holesterol 198 <200 - mg/dL * H DL Cholesterol 47 >39 - mg/dL * L DL Cholesterol (Calculation) 132 H <130 - mg/d L * L DL/HDL Ratio 2.8 <3.3 - Ratio * N on-HDL Cholesterol 151 H <130 - mg/dL * T riglycerides 93 <150 - mg/dL * Radha Mallory 04/05/2024 8:51: 56 AM >See phone encounter ?LAB: P-TSH reflex to FT4 (Collection Date & Time - 04/04/2024 10:31 AM)? Normal* Value Reference Range T SH reflex to FT4 1.78 0.43-5.25 - mU/L * Radha Mallory 04/05/2024 8:51: 56 AM >See phone encounter * Follow Up: p rn * Images: Billing Information: * Visit Code: 33846 Preventive Care Est Pt Age 40-64. * Procedure Codes: * Electronic signature of Arlet Oconnell MD on 05/18/2025 at 04:42 PM EST Sign off status: Pending * Provider: Mariah Oconnell M.D. Date: Generated for Enrique isaacs/Sofie/Trixie on: 07/18/2024 04:42 PM EST History and Physical Notes * HPI (History of Present Illness) Category Sub-Category Detail Notes Category Not es HPI Patient is here today for annual physical for her insurance. Pt is fasting today. Pt sts that she has no new concerns or complaints Examination Category Sub-Category Detail Notes Category Not es General Examination HEENT: unremarkable Heart: RSR Lungs: clear to auscultatio n Extremities: no leg edema General Appearance: NAD Skin: normal, no rash Peripheral pulses: normal (2+) bilatera lly Chest: normal shape and exp ansion
--- OUTSIDE RECORDS SUMMARY | 2025-04-10 10:15 | XMS_ITS ---
Author Organization [facility] Address [address] [facility] 36 [facility] [address] [place] [id number] Care Team Providers Care Business Transformation Manager Name Role Phone Candida Reyes Primary Care Provider Rigo Oconnell Unavailable [phone] Allergies No Known Allergies Results Component Value Reference Range Notes P-Comprehensive Metabolic [place] (CMP) Reviewed date:04/12/2025 03:33:44 PM Interpretation:Alk Phos 140 Performing Lab: Notes/Report: Test performed by [facility] , [address], [place] [address] Tejas Garcia MD, Jewelry Sales Associate CLIA: [id number] Sodium 142 135-145 mmol/L Potassium 4.6 3.5-5.3 mmol/L Chloride 105 97-108 mmol/L CO2 29 20-32 mmol/L Glucose 90 65-99 mg/dL BUN 13 6-20 mg/dL Creatinine 0.81 0.50-1.00 mg/dL Calcium 9.1 8.6-10.4 mg/dL eGFR by Creatinine 85 >59 mL/min/1.73m2 Protein 6.9 6.0-8.3 g/dL Albumin 4.2 3.5-5.3 g/dL Alkaline Phosphatase 140 35-121 IU/L ALT (SGPT) 15 <5-47 IU/L AST (SGOT) 15 <5-40 IU/L Bilirubin, Total 0.4 <0.2-1.2 mg/dL A/G Ratio 1.6 1.1-2.5 P-Lipid Panel Reviewed date:04/12/2025 03:33:44 PM Interpretation:TC 211, HDL 41, TC/HDL 5.15, Non-HDL 170, LDL 142, LDL/HDL 3.47 Performing Lab: Notes/Report: Test performed by [facility] [address] [place] [address] [address] , [place] [address] Tejas Garcia MD, Jewelry Sales Associate CLIA: [id number] Lipid Panel Footnote See Below *Based on optimal reference values. Please refer to the DOS for additional information regarding diagnostic lipid reference ranges, patient management based on the recently updated lipid guidelines ([employer] [employer] [employer] Task Force on Clinical Practice Guidelines (2018), and pediatric diagnostic lipid reference values (<18 years old). Total Cholesterol 211 <200 mg/dL Triglycerides 138 <150 mg/dL HDL Cholesterol 41 >50 mg/dL Total Cholesterol / HDL Ratio* 5.15 <3.99 Rati o Non-HDL Cholesterol 170 <130 mg/dL LDL Cholesterol (Calculation) 142 <100 mg/dL LDL / HDL Ratio* 3.47 <1.99 Ratio LDL Cholesterol Patient History Test Date: 05/16/2022 LDL Results: 104 Units: mg/dL % Change: - Test Date: 04/04/2024 LDL Results: 132 Units: mg/dL % Change: +26% Test Date: 04/10/2025 LDL Results: 142 Units: mg/dL % Change: +7% P-TSH reflex to FT4 Reviewed date:04/12/2025 03:33:44 PM Interpretation:Normal Performing Lab: Notes/Report: Test performed by [facility] [address] [place] [address] , [address], [place] [address] Tejas Garcia MD, Jewelry Sales Associate CLIA: [id number] TSH reflex to FT4 1.27 0.43-5.25 mU/L REASON FOR VISIT yearly cpx Medications Medication SIG (Take, Route, Frequency, Duration) Notes Start Date End Date Status Progesterone 200 MG 1 capsule at bedtime Orally Once a day; Duration: 30 day(s) Active Maddie 0.1 MG/24HR 1 patch to skin Transdermal Two times a Week; Duration: 30 day(s) Active CareTouch CPAP & BIPAP Hose - as directed 11/19/2015 Active Albuterol Sulfate HFA 108 (90 Base) MCG/ACT 2 puff(s) inhaled every 6 hours Active DULoxetine HCl 60 MG 2 cap(s) orally onc e a day; Duration: 90 days Active Vital Signs Blood pressure systolic 132 mm Hg 04/10/20 25 Blood pressure diastolic 80 mm Hg 025 Heart Rate 83 /min 04/10/2025 Height 62 in 04/10/2025 Weight 168.8 lbs 04/10/2025 BMI 30.87 kg/m2 04/10/2025 Encounters Encounter Location Date Provider Diagnosis [facility] [address] [place] [id number] 04/10/2025 Rigo Oconnell Well adult exam Z00. 00 Assessments Encounter Date Diagnosis (ICD Code) Assessment Notes Treatment Notes Treatment Clinical Notes Section Notes 04/10/2025 Well adult exam (ICD-10 - Z00.00) Plan Of Treatment Next Appt Details Follow Up: 1 Year, Reason: Progress Notes * BERNARD ROSENB:1970 ( 54 yo F)Acc No.[id number]:04/10/2025 Physical Patient: RUSTY BLACKMON Provider: Mariah Oconnell M.D. :1970 A ge:54 Y S ex:Female Date:04/10/2025 Address:[address] [place] [id number] Pcp:Candida Reyes Subjective: * Chief Complaints: * 1 . Yearly cpx. * HPI: H PI: 54 year old female presents with c/o Patient is here today for?Pt here for annual physical. Pt states she is doing well and does not have any concerns at this time. C ardiology: c/o Hyperlipidemia P t is fasting today. * Medical History: A llergic Rhinitis, Asthma, [employer]ING - Dr. Whitaker, Depression, Sleep Apnea. * Surgical History: c olonoscopy 2022, Right Foot Surgery 04/2023. * Hospitalization/Major Diagno stic Procedure: R T Heel Pain- [facility] [place] 07/28/2016, SO[facility]- [facility] ER 07/2020. * Family History: F ather: , cancer. M other: . P aternal Grand Father: . P aternal Grand Mother: . M aternal Grand Father: . M aternal Grand Mother: . 1 son(s) , 1 daughter(s) - healthy. . * 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: C URRENT TOBACCO USE: No S moking Status: Patient does NOT smoke, [...] Allergies: N .K.D.A. Objective: * Vitals: W t: 168.8, Temp: 98.0, BP: 132/80, HR: 83, Nurse: roxanne, Ht: 62, BMI:30.87. * Examination: G eneral Examination: General Appearance: N AD. H EENT: u nremarkable.?Chest: n ormal shape and expansion. H eart: R SR. L ungs: c lear to auscultation. S kin: n ormal, no rash. P eripheral pulses: n ormal (2+) bilaterally. E xtremities: n o leg edema. Assessment: * Assessment: 1. W [facility] adult exam - Z00.00 (Primary) Plan: * Treatment: Value Reference Range A /G Ratio 1.6 1.1-2.5 - * A lbumin 4.2 3.5-5.3 - g/dL * A lkaline Phosphatase 140 H 35-121 - IU/L * A LT (SGPT) 15 <5-47 - IU/L * A ST (SGOT) 15 <5-40 - IU/L * B ilirubin, Total 0.4 <0.2-1.2 - mg/dL * B UN 13 6-20 - mg/dL * C alcium 9.1 8.6-10.4 - mg/dL * C hloride 105 97-108 - mmol/L * C O2 29 20-32 - mmol/L * C reatinine 0.81 0.50-1.00 - mg/dL * G lucose 90 65-99 - mg/dL * P otassium 4.6 3.5-5.3 - mmol/L * S odium 142 135-145 - mmol/L * P rotein 6.9 6.0-8.3 - g/dL * e GFR by Creatinine 85 >59 - mL/min/1.73m2 * Jessica Macario 04/12/2025 03 :33:38 PM EDT > See phone encounter ?LAB: P-Lipid Panel (Collection Date & Time - 04/10/2025 03:27 PM)?TC 211, HDL 41, TC/HDL 5.15, Non-HDL 170, LDL 142, LDL/HDL 3.47* Value Reference Range C holesterol / HDL Ratio 5.15 H <3.99 - Ratio * C holesterol 211 H <200 - mg/dL * H DL Cholesterol 41 L >50 - mg/dL * L DL Cholesterol (Calculation) 142 H <100 - mg/d L * L DL/HDL Ratio 3.47 H <1.99 - Ratio * N on-HDL Cholesterol 170 H <130 - mg/dL * T riglycerides 138 <150 - mg/dL * L ipid Panel Footnote See Below - * Jessica Macario 04/12/2025 03 :33:38 PM EDT > See phone encounter ?LAB: P-TSH reflex to FT4 (Collection Date & Time - 04/10/2025 03:27 PM)? Normal* Value Reference Range T SH reflex to FT4 1.27 0.43-5.25 - mU/L * Jessica Macario 04/12/2025 03 :33:38 PM EDT > See phone encounter * Procedure Codes: 1 036F TOBACCO NON-USER, 3075F SYST BP GE 130 - 139MM HG, 3079F DIAST BP 80-89 MM HG * Follow Up: 1 Year * Images: Billing Information: * Visit Code: 07136 Preventive Care Est Pt Age 40-64. * Procedure Codes: 1036F TOBACCO NON-USER. 3075F SYST BP GE 130 - 139MM HG. 3079F DIAST BP 80-89 MM HG. * Electronic signature of Arlet Oconnell MD on 05/18/2025 at 04:42 PM EST Sign off status: Pending * Provider: Mariah Oconnell M.D. Date: Generated for Printi ng/Faxing/eTransmitting on: 07/18/2024 04:42 PM EST History and Physical Notes * HPI (History of Present Illness) Category Sub-Category Detail Notes Category Not es Cardiology Hyperlipidemia Pt is fasting today HPI Patient is here today for Pt her e for annual physical. Pt states she is doing well and does not have any concerns at this time Examination Category Sub-Category Detail Notes Category Not es General Examination HEENT: unremarkable Heart: RSR Lungs: clear to auscultatio n Extremities: no leg edema General Appearance: NAD Skin: normal, no rash Peripheral pulses: normal (2+) bilatera lly Chest: normal shape and exp ansion
--- NOTE | 2025-05-18 14:19 | MM_ITS ---
PROCEDURE INFORMATION: Exam: MG Bilateral Screening 3D Mammography Exam date and time: 05/18/2025 2:19 PM Age: 54 years old Clinical indication: Screening examination. A maternal aunt had breast cancer. TECHNIQUE: Imaging protocol: Bilateral Screening tomosynthesis and 2D mammography including computer-aided detection (CAD) when performed. COMPARISON: 1. MG MM DIG SCREENING MAMM BI W/CAD 07/07/2023 9:00 AM 2. MG DMSB DIG MAMM-SCREEN MILES 05/03/2015 5:02 PM 3. MG DMSB DIG MAMM-SCREEN MILES 04/25/2014 11:01 AM 4. MG DMSB DIG MAMM-SCREEN MILES 04/08/2013 8:25 AM FINDINGS: MAMMOGRAPHY: Breast composition: There are scattered areas of fibroglandular density. Mass: No suspicious mass. Architectural distortion: None. Calcifications: No suspicious calcifications. Asymmetric density: None. Skin thickening: None. Axillary adenopathy: None. IMPRESSION: No mammographic evidence of malignancy. Annual screening is recommended unless otherwise clinically indicated. ASSESSMENT: BI-RADS Category 1: Negative.
--- OUTSIDE RECORDS SUMMARY | 2025-05-18 16:42 | XMS_ITS | Clinical Summary ---
Author Organization [facility] Address [address] [place] [address] Care Team Providers Care Field Service Technician Name Role Phone Rigo Oconnell MD Primary Care Provider + [phone] Allergies No known active allergies Medications DULoxetine (CYMBALTA) 60 MG capsule Take 120 mg by mouth Daily. 10/18/2021 Active albuterol (ProAir RespiClick) 108 (90 Base) MCG/ACT inhaler Inhale 2 puffs Every 4 (Four) Hours. Active Active Problems No known active problems Family History Medical History Relation Name Comments Hypertension Father Stomach cancer Father Diabetes Mother Heart disease Mother Hypertension Mother Relation Name Status Comments Father Mother 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 Tobacco Use Types Packs/Day Years Used Date Smoking Tobacco: Never Smokeless Tobacco: Never Alcohol Use Standard Drinks/Week Comments Yes 0 (1 standard drink = 0.6 oz pur e alcohol) 1-3 drinks oer week Abuse Screen Answer Date Recorded Unsafe at Home or Work/School Not on file Feels Threatened by Someone? Not on file Does Anyone Keep You from Co ntacting Others or Doint Things Outside the Home? Not on file 04/10/2023 Physical Sign of Abuse Present Not on file 1 Housing Stability Answer Date Recorded Current Living Arrangements Not on file 03/29 Potentially Unsafe Housing Conditions Not on april e 04/10/2023 Family and Community Support Answer Franky e Recorded Help with Day-to-Day Activities Not on file 04/10/2023 Lonely or Isolated Not on file 04/10/2023 Employment Answer Date Recorded Do you want help finding or keeping work or a calvin b? Not on file 04/10/2023 Disabilities Answer Date Recorded Concentrating, Remembering, or Making Decisions Difficulty Not on file 04/10/2023 Doing Errands Independently Difficulty Not on fi le 04/10/2023 Education Answer Date Recorded Help with school or training? Not on file Preferred Language Not on file 04/10/2023 Comments Unknown Sex and Gender Information Value Date Recorded Sex Assigned at Not on file Legal Sex Female 10:55 AM EDT Gender Identity Not on file Sexual Orientation Not on file Last Filed Vital Signs Vital Sign Reading Time Taken Comments Blood Pressure - - Pulse - - Temperature 36.7 C (98 F) 10/23/2021 11:06 AM EDT Respiratory Rate - - Oxygen Saturation - - Inhaled Oxygen Concentration - - Weight 81.8 kg (180 lb 4.8 oz) 10/23/2021 11:06 AM EDT Height 157.5 cm (5' 2 ) 10/23/2021 11:06 AM EDT Body Mass Index 32.98 10/23/2021 11:06 AM EDT Plan of Treatment Health Maintenance Due Date Last Done Comments Annual Gynecologic Pelvic and Breast Exam 1970 TDAP/TD VACCINES (2 - Tdap) 09/01/2006 09/01/1996 MAMMOGRAM 2009 COLOGUARD 2014 COLON CANCER SCREENING 5 YEAR SIGMOIDOSCOPY 2014 COLONOSCOPY [address] CANCER SCREENING [address] CT COLONOGRAPHY 2014 FECAL OCCULT BLOOD TEST 2014 FIT Testing (1 year) 2014 Pneumococcal Vaccine 50+ (1 of 1 - PCV) 09/04/2019 ZOSTER VACCINE (1 of 2) 09/04/2019 ANNUAL PHYSICAL 10/23/2021 HEPATITIS C SCREENING 10/23/2021 INFLUENZA VACCINE 01/27/2025 Insurance Care Teams Field Service Technician Relationship Specialty Start Date End Date Rigo Oconnell MD [address] [facility] [address] [facility] [address] [place] [id number] PCP - General Family Medicine 09/27/21
--- OUTSIDE RECORDS SUMMARY | 2025-05-18 16:42 | XMS_ITS | Referral Summary ---
Author Organization [employer] ([place], [place], [place], [place], [place]) Address [address] [place] [address] Care Team Providers Care Machine Tool Dresser Name Role Phone Rigo Oconnell MD Primary Care Provider + [phone] Allergies No known active allergies Medications progesterone (PROMETRIUM) 200 MG capsule Take 1 capsule (200 mg total) by mouth daily. 02/11/2023 Active estradioL (VIVELLE-DOT) 0.1 mg/24 hr patch 1 patch twice a week. 04/20/2023 Active albuterol sulfate (ProAir RespiClick) 90 mcg/actuation AePB Inhale 2 puffs by mouth via inhaler. Active DULoxetine (CYMBALTA) 60 MG capsule Take 1 capsule (60 mg total) by mouth 2 (two) times daily. Active Active Problems Problem Noted Date Diagnosed Date Obesity 05/05/2023 MIREILLE on CPAP 05/05/2023 Asthma 05/05/2023 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 Tobacco Use Types Packs/Day Years Used Date Smoking Tobacco: Never Smokeless Tobacco: Never Tobacco Cessation:Counseling Given: Not Answered Alcohol Use Standard Drinks/Week Comments Not Currently 0 (1 standard drink = 0.6 oz pur e alcohol) rarely Food Insecurity Answer Date Recorded Food run out past 12 months Not on file 06/30 Food did not last past 12 months Not on file 07/18/2023 Employment Answer Date Recorded Help finding and keeping a job Not on file 0 07/18/2023 Family and Community Support Answer Franky e Recorded Help with Day to Day Activities Not on file 07/18/2023 Feeling Lonely or Isolated Not on file 07/18 Educational Attainment Answer Date Angelo rded Speak language other than French at home Not on file 07/18/2023 Want help with school or training Not on file 07/18/2023 Substance Use Answer Date Recorded Used prescription meds for non-medical reasons N ot on file 07/18/2023 Used illegal drugs past 12 months Not on file 07/18/2023 Comments Unknown Sex and Gender Information Value Date Recorded Sex Assigned at Not on file Legal Sex Female 8:28 AM CDT Gender Identity Not on file Sexual Orientation Not on file Last Filed Vital Signs Vital Sign Reading Time Taken Comments Blood Pressure 145/92 05/05/2023 3:20 PM EST Pulse 83 05/05/2023 3:20 PM EST Temperature 36.2 C (97.2 F) 05/05/2023 2:55 PM EST Respiratory Rate 16 05/05/2023 3:20 PM EST Oxygen Saturation 97% 05/05/2023 3:20 PM EST Inhaled Oxygen Concentration - - Weight 85.3 kg (188 lb) 05/05/2023 10:17 AM EST Height 157.5 cm (5' 2 ) 05/05/2023 10:17 AM EST Body Mass Index 34.39 05/05/2023 10:17 AM EST Plan of Treatment Not on file Insurance [facility] [employer] Care Teams Machine Tool Dresser Relationship Specialty Start Date End Date Rigo Oconnell MD [address] [place] [id number] PCP - General Family Medicine 04/21/23
--- OUTSIDE RECORDS SUMMARY | 2025-05-18 16:42 | XMS_ITS | Clinical Summary ---
Author Organization [place] [address] Care Team Providers Care Sports Apparel Internship Name Role Phone Unavailable Primary Care Provider Unavailabl e 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 Tobacco Use Types Packs/Day Years Used Date Smoking Tobacco: Never Assessed Comments Unknown Sex and Gender Information Value Date Recorded Sex Assigned at Not on file Legal Sex Female 5:50 AM EDT Gender Identity Not on file Sexual Orientation Not on file Plan of Treatment Health Maintenance Due Date Last Done Comments Annual Wellness Exam 1972 DTaP/TDaP/Td (1 - Tdap) 1988 Hepatitis B Vaccine (1 of 3 - 19+ 3-dose series) 1988 Cologuard 2014 Colon Cancer Screening 2014 Colonoscopy 2014 FIT 2014 Sigmoidoscopy 2014 Virtual Colonography 2014 Pneumococcal Vaccine 50+ (1 of 1 - PCV) 09/04/2019 Zoster (1 of 2) 09/04/2019 COVID-19 Vaccine (1 - 2024-2 6 season) 2025 Influenza Vaccine (#1) 2025 Meningococcal B Vaccine Aged Out No l onger eligible based on patient's age to complete this topic
--- OUTSIDE RECORDS SUMMARY | 2025-05-18 16:42 | XMS_ITS | Patient Health Record ---
[facility] [address] [facility] [address] [facility] [address] [place] [id number] Care Team Providers Care Garment Sewer Hand Name Role Phone Candida Reyes Primary Care Provider OakfieldRigo cisneros Unavailable [phone] Allergies No Known Allergies Results Component Value Reference Range Notes P-Comprehensive Metabolic [place] (CMP) Reviewed date:04/12/2025 03:33:44 PM Interpretation:Alk Phos 140 Performing Lab: Notes/Report: Test performed by [facility] [address] [place] [address] , [address], [place] [address] Tejas Garcia MD, Homogenizer Operator CLIA: [id number] Sodium 142 135-145 mmol/L Potassium 4.6 3.5-5.3 [...] 3.47 Performing Lab: Notes/Report: Test performed by [facility], [address] , [place] [address] Tejas Garcia MD, Homogenizer Operator MARY: [id number] Lipid Panel Footnote See Below *Based on optimal reference values. Please refer to the DOS for additional information regarding diagnostic lipid reference ranges, patient management based on the recently updated lipid guidelines ([place] [employer]/[place] [employer] Task Force on Clinical Practice [...] Interpretation:Normal Performing Lab: Notes/Report: Test performed by [facility] [address] [place] [address] , [address], [place] [address] Tejas Garcia MD, Homogenizer Operator CLIA: [id number] TSH reflex to FT4 1.27 0.43-5.25 mU/L Reason For Referral No Information Medications Medication SIG (Take, Route, Frequency, Duration) [...] e a day; Duration: 90 days Active Immunizations Vaccine Route Administration Date Status Comme nts COVID 19 Pfizer Unknown 02/17/2021 Administered DT, 7 YEARS OR OLDER Unknown 09/01/1996 Administered xFluzone (6mos and older)-trivalent ID Intradermal 04/06/2014 Administered Problems Problem Type SNOMED Code ICD Code Onset Dates Problem Status W/U Status Risk Notes Problem Hypertriglyceridemia (296736851) Hypertriglyceridemia (E78.1) Active confirmed Problem Mixed anxiety and depressive disorder (407891935) Depression with anxiety (F41.8) Active confirmed Problem Mild intermittent asthma (850620556) Mild intermittent asthma without complication (J45.20) Active confirmed Problem Uncomplicated mild persistent asthma (511591182) Mild persistent asthma without complication (J45.30) Active confirmed Problem Obstructive sleep apnea syndrome (14701545) Obstructive sleep apnea hypopnea, moderate (G47.33) Active confirmed Problem Glossodynia (10787825) Tongue pain (K14.6) Active confirmed Problem Obesity (648768367) Non morbid o besity (E66.9) Active confirmed Vital Signs Heart Rate 83 /min 04/10/2025 Blood pressure diastolic 80 mm Hg 04/10/2025 Height 62 in 04/10/2025 Blood pressure systolic 132 mm Hg 04/10/2025 Weight 168.8 lbs 04/10/2025 BMI 30.87 kg/m2 04/10/2025 Encounters Encounter Location Date Provider Diagnosis [facility] [address] [facility] [address] [place], [place] [id number] 04/10/2025 Rigo Oconnell Well adult exam Z00.00 [facility] [address] [facility] [address] [place], [place] [id number] 04/25/2025 Candida Reyes [facility] [address] [facility] [address] [place], [place] [id number] 01/27/2025 Candida Reyes [facility] [address] [facility] [address] [place], [place] [id number] 04/12/2025 Rigo Oconnell Assessments Encounter Date Diagnosis (ICD Code) Assessment Notes Treatment Notes Treatment Clinical Notes Section Notes 04/10/2025 Well adult exam (ICD-10 - Z00.00) Plan Of Treatment No Information Insurance Providers Payer Name Payer Address Payer Phone Subscriber Number Group Number Insured Name Patient Relationship to Insured Coverage Start Date Coverage End Date [facility] [address] [place] [phone] [id number] ROBERT ROSEN Spouse - patient is the spouse of the insured Medications Administered Medication Instructions Date of Administration Dosage Notes Dexamethasone 10/27/2005 1 mL Dexamethasone 07/02/2009 1.0 mL Medical (General) History Medical History History ICD Code Allergic Rhinitis Asthma 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 ER 07/2020 [facility]
--- OUTSIDE RECORDS SUMMARY | 2025-05-18 16:42 | XMS_ITS | Clinical Summary ---
Author Organization [facility] Address [facility] [place] [address] [place] [address] Care Team Providers Care Biblical Studies Professor Name Role Phone Unavailable Primary Care Provider Unavailabl e 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 Tobacco Use Types Packs/Day Years Used Date Smoking Tobacco: Never Assessed Comments Unknown Sex and Gender Information Value Date Recorded Sex Assigned at Not on file Legal Sex Female 10:02 PM EDT Gender Identity Not on file Sexual Orientation Not on file Plan of Treatment Health Maintenance Due Date Last Done Comments DTap,Tdap,and Td (1 - Tdap) 1980 Pap Screening 1990 Mammogram Screening 2009 Colonoscopy 2014 Pneumococcal 50+ (1 of 1 - PCV) 09/04/2019 Shingrix (#1) 09/04/2019 Influenza Vaccine (#1) 2025 RSV Vaccine (60+ or ) (1 - 1-dose 75+ series) 2044 HPV Aged Out No longer eligi ble based on patient's age to complete this topic Meningococcal conjugate rashawn nt 4 (MCV4) Aged Out No longer eligible b ased on patient's age to complete this topic RSV Immunization (<20 months) Aged Out No longer eligible based on patient's age to complete this topic
--- OUTSIDE RECORDS SUMMARY | 2025-05-18 16:42 | XMS_ITS | Clinical Summary ---
Author Organization [employer] ([place], [place], [place], [place], [place]) Address [address] [place] [address] Care Team Providers Care Tank Tester Name Role Phone Rigo Oconnell MD Primary Care Provider + [phone] Allergies No known active allergies Medications progesterone [...] Date Angelo rded Speak language other than Amharic at home Not on file 07/18/2023 Want [...] 05/05/2023 10:17 AM EST Plan of Treatment Health Maintenance Due Date Last Done Comments CT Colonography 1969 Colonoscopy 1969 Colorectal Cancer Screening 1969 FOBT/FIT 1969 Fit-DNA (Cologuard) 1969 Sigmoidoscopy 1969 Depression Screening (12+) 1981 HIV Screening 1984 Hepatitis C Screening 09/04/1987 Pneumococcal 50+ years (1 of 2 - PCV) 1988 Pap Smear 1990 DTAP/TDAP/TD VACCINES (2 - Td or Tdap) 09/01/2006 Breast Cancer Screening 2009 Lipid Panel 2014 Shingles Vaccine (Zoster) (1 of 2) 09/04/2019 Tobacco Cessation Counseling and Screening (12+) 05/05/2024 05/05/2023 COVID-19 VACCINE (3 - season) 2025, 01/27/2021 Influenza Vaccine (#1) 2025 Insurance [address] [place] [address] [id number] [facility] CHOICE PLUS Care Teams Tank Tester Relationship Specialty Start Date End Date Rigo Oconnell MD [address] [facility] [address] [place] [id number] PCP - General Family Medicine 04/21/23
== END 2025-05-18 23:59 | disposition home or self-care (01) ==
LOC: RAD 14:17
PROVIDERS: PCP Family Medicine; Visit Provider Obstetrics & Gynecology Gynecology
DX: Z12.31 Encounter for screening mammogram for malignant neoplasm of breast (principal); R92.323 Mammographic fibroglandular density, bilateral breasts; Z80.3 Family history of malignant neoplasm of breast
CPT/HCPCS: 77063; 77067